=== PATIENT | male | born 1995 | race Caucasian/White ===

== ENCOUNTER 2016-06-16 10:09 | Emergency (ER) | payer OTHER ==
[~2016-06-16] VITALS: Ht 188 cm; Wt 83.8 kg
[2016-06-16 10:35] VITALS: TEMP 36.8; Ht 188 cm; Wt 83.8 kg
[2016-06-16 11:20] VITALS: BP 148/85; PULSE 78; O2SAT 98
--- NOTE | 2016-06-16 16:04 | EMERGENCY ROOM VISIT NOTE ---
History First contact with patient: 10:37 Chief Complaint: SORETHROAT Stated Complaint: THROAT, FATIGUE, HEADACHE History of Present Illness The patient is a 20 year old male who presents to the Emergency Room with complaints of a sore throat, fatigue and headache. The patient reports that he would like to be tested for mono as his girlfriend was diagnosed with mononucleosis approximately 3 weeks ago. The patient reports that he was last with his girlfriend 5 weeks ago. Based on his research, he is concern that he now has mono. His symptoms started last evening. He has not taken any ibuprofen or Tylenol for his discomfort. He has not had any fevers or chills. He reports minimal sore throat. He denies any cough, runny nose or sinus congestion. He rates his discomfort a 4 out of 10. Review of Systems 10 system review was performed and was negative except for pertinent positives and negatives as indicated in history of present illness Past Medical/Surgical History Medical Problems: (1) Nicotine Dependence, Unspecified, Uncomplicated (2) No significant past medical history Surgical Problems: (1) No history of previous surgery Family History FH: cancer FH: diabetes mellitus Social History Smoking Status: Never Smoker Alcohol Use: none Marital Status: single Occupation Status: [employer] student Current/Historical Medications No Active Prescriptions or Reported Meds Allergies Coded Allergies: No Known Allergies (Unverified , 06/16/16) Physical Exam Vital Signs Date Time Temp Pulse Resp B/P Pulse Ox O2 Delivery O2 Flow Rate FiO2 06/16/16 11:20 78 18 148/85 98 06/16/16 11:01 99 Room Air 06/16/16 10:35 36.8 80 20 162/87 99 Room Air Pain Rating (0-10): 2.0 Physical Exam CONSTITUTIONAL: Healthy and well nourished. Alert and oriented X 3 with positive affect. She does not appear acutely ill or toxic. HEENT: Normocephalic, atraumatic. Pupils equal, round and reactive. Ears and nares are clear. No scleral icterus or conjunctival injection/pallor. No rhinorrhea. OROPHARYNX: Minimal posterior pharyngeal erythema without tonsillar hypertrophy or exudates. LYMPHATICS: The patient has mild posterior cervical chain adenopathy. No anterior adenopathy noted. NECK: Full active range of motion without discomfort. No nuchal rigidity. RESPIRATORY: Clear to auscultation bilaterally with no wheezing, crackles, rhonchi or stridor. CARDIOVASCULAR: Regular rate and rhythm with no murmurs, rubs or gallops. GASTROINTESTINAL: Bowel sounds present in all quadrants. Abdomen is soft and nontender to palpation. No hepatosplenomegaly. MUSCULOSKELETAL: Full range of motion of all joints without discomfort. INTEGUMENTARY: No rash or other significant dermatologic conditions noted. NEUROLOGIC: No focal neurologic deficits noted. Medical Decision & Procedures ED Course Patient history and physical exam were performed. Nurse's notes were reviewed. Vital signs were reviewed and were normal. I ask went to the patient that he does have posterior cervical chain adenopathy. Given his current symptoms, there is high likelihood that the patient does have mononucleosis. I also explained to the patient that it takes better than 7-10 days in order to detect mono antibodies in blood testing. I did encourage the patient to follow-up with his PCP upon return home after the end of sem. I also warned him about the possibility of splenic engorgement, and avoidance of physical activity 2-4 weeks after symptom onset. He was encouraged to alternate ibuprofen and Tylenol as needed for pain and fever. He was also instructed to rest and remain well-hydrated. The patient was happy with plan of care, and voiced understanding of all discharge instructions. Medical Decision Impression Primary Impression: Acute pharyngitis Additional Impressions: Fatigue Posterior cervical lymphadenopathy Departure Information Dispostion Home / Self-Care Condition GOOD Prescriptions No Active Prescriptions or Reported Meds Forms HOME CARE DOCUMENTATION FORM, IMPORTANT VISIT INFORMATION Patient Instructions Mononucleosis, My [facility] Additional Instructions Rest and remain well-hydrated. Ibuprofen 800 mg and/or Tylenol 1000 mg every 8 hours. You may also alternate these medications for more effective pain relief: Ibuprofen --4 HRS--> Tylenol --4 HRS--> ibuprofen --4 HRS--> Tylenol .... There is a very good chance that you also have mononucleosis. [place] antibodies cannot be detected until approximately 10-14 days after symptom onset. Follow-up with your family doctor in 10-14 days if you wish to have confirmatory Monospot testing performed. Return to the emergency department for any progressively worsening symptoms. Problem Qualifiers Primary Impression: Acute pharyngitis Pharyngitis/tonsillitis etiology: unspecified etiology Qualified Codes: J02.9 - Acute pharyngitis, unspecified Additional Impressions: Fatigue Fatigue type: other Qualified Codes: R53.83 - Other fatigue
== END 2016-06-16 11:23 | disposition home or self-care (01) ==
LOC: C.EDB 10:10
DX: J02.9 Acute pharyngitis, unspecified (principal); R53.83 Other fatigue; R51 Headache; R59.0 Localized enlarged lymph nodes